=== PATIENT | female | born 1960 | race American Indian/Alaskan Native ===

== ENCOUNTER 2021-10-01 12:06 | Outpatient (CLI) | payer BC ==
--- NOTE | 2021-10-01 15:46 | Vascular Lab Report ---
VL venous duplex LE RT INDICATION / CLINICAL INFORMATION: M79.89 OTHER SPECIFIED SOFT TISSUE DISORDER M79.662 PAIN. TECHNIQUE: Multiple grayscale sonographic images of left upper extremity were obtained utilizing a high-frequenc y linear array transducer with color Doppler, compression and other maneuvers when feasible. COMPARISON: None available. FINDINGS: No venous thrombosis is identified within the visualized extremity vasculature. ADDITIONAL FINDINGS: None. IMPRESSION: 1. No sonographic evidence for DVT in the visualized bilateral lower extremity vasculature. Signer Name: Abdullahi Vargas MD Signed: 10/01/2021 3:42 PM Workstation Name: [id number]
== END 2021-10-01 12:07 | disposition home or self-care (01) ==
LOC: VAS 12:06
PROVIDERS: ATTEND Podiatrist Foot & Ankle Surgery
DX: M79.89 Other specified soft tissue disorders (principal); M79.662 Pain in left lower leg